=== PATIENT | female | born 1965 | race Caucasian/White ===

== ENCOUNTER 2019-01-15 20:35 | Inpatient (IN) | payer MEDICAID, OTHER ==
[~2019-01-15] VITALS: Ht 185.4 cm; Wt 162.8 kg
[2019-01-15] MEDS ORDERED: FERR325T24 PO (21:19)
[2019-01-15] MEDS ORDERED: CHOL500062 PO (21:19)
[2019-01-15] MEDS ORDERED: CAPS42.513 TP (21:19)
[2019-01-15] MEDS ORDERED: ATOR80TA PO (21:19)
[2019-01-15] MEDS ORDERED: FURO40TA5 PO (21:19)
[2019-01-15] MEDS ORDERED: ALBU2.5V38 IH (21:19)
[2019-01-15] MEDS ORDERED: ACET325C3 PO (21:19)
[2019-01-15] MEDS ORDERED: DULO30CA2 PO (21:19)
[2019-01-15] MEDS ORDERED: DOCU100C36 PO (21:19)
[2019-01-15] MEDS ORDERED: CLOP75TA15 PO (21:19)
[2019-01-15] MEDS ORDERED: FOLI1TAB16 PO (21:19)
[2019-01-15] MEDS ORDERED: CARI350T27 PO (21:19)
[2019-01-15] MEDS ORDERED: ASPI-605 PO (21:19)
[2019-01-15] MEDS ORDERED: PANT40TA4 PO (21:20)
[2019-01-15] MEDS ORDERED: GABA600T12 PO (21:20)
[2019-01-15] MEDS ORDERED: NITR0.4T48 SL (21:20)
[2019-01-15] MEDS ORDERED: LEVE500T9 PO (21:20)
[2019-01-15] MEDS ORDERED: INSU100I26 SQ (21:20)
[2019-01-15] MEDS ORDERED: NAPR-1009 PO (21:20)
[2019-01-15] MEDS ORDERED: METO50TA16 PO (21:20)
[2019-01-15] MEDS ORDERED: HYDR4TAB57 PO (21:20)
[2019-01-15] MEDS ORDERED: BLOO-140 IN (21:20)
[2019-01-15] MEDS ORDERED: METO-295 PO (21:20)
[2019-01-15] MEDS ORDERED: LISI-603 PO (21:20)
[2019-01-15] MEDS ORDERED: HYDR-3980 PO (21:20)
[2019-01-15] MEDS ORDERED: OMEG1CAP55 PO (21:20)
[2019-01-15] MEDS ORDERED: MEMA5TAB PO (21:20)
[2019-01-15] MEDS ORDERED: GLIM2TAB2 PO (21:20)
[2019-01-15] MEDS ORDERED: METF-442 PO (21:20)
[2019-01-15] MEDS ORDERED: HYDROMORPHONE HCL 2 MG TABLET ONE (21:30)
[2019-01-15] MEDS ORDERED: HYDROMORPHONE HCL 2 MG TABLET PO ONE (21:30)
[2019-01-15] MEDS ORDERED: vancomycin IV (21:39)
[2019-01-15 21:56] LABS: BASOPHILS % (AUTO) 0.5 % (0.0-2.0); EOSINOPHILS # (AUTO) 0.1 K/uL (0.0-0.7); EOSINOPHILS % (AUTO) 2.4 % (0.0-7.0); HEMATOCRIT 32.2 % (31.2-41.9); HEMOGLOBIN 10.9 g/dL (10.9-14.3); LYMPHOCYTES % (AUTO) 33.5 % (20.5-51.5); MEAN CORPUSCULAR HEMOGLOBIN 33.1 uug (24.7-32.8); MEAN CORPUSCULAR HGB CONC 34 g/dL (32.3-35.6); MEAN CORPUSCULAR VOLUME 97.4 fL (75.5-95.3); MONOCYTES # (AUTO) 0.4 K/uL (2.0-10.0); MONOCYTES % (AUTO) 7.6 % (0.0-11.0); NEUTROPHILS # (AUTO) 3.3 K/uL (1.8-8.9); PLATELET COUNT (AUTO) 249 K/uL (179-408); RED BLOOD CELL COUNT(AUTO) 3.31 MIL/uL (3.63-4.92); WHITE BLOOD COUNT (AUTO) 5.9 K/uL (3.8-11.8)
[2019-01-15] MEDS ORDERED: VANCOMYCIN 1000 MG VIAL ONE (21:57)
[2019-01-15] MEDS ORDERED: VANCOMYCIN HCL 500 MG VIAL ONE (21:57)
[2019-01-15 22:03] LABS: *BILIRUBIN,URIN NEGATIVE (NEGATIVE); *BLOOD, URINE NEGATIVE (NEGATIVE); *CLARITY,URINE CLEAR (CLEAR); *COLOR,URINE YELLOW (YELLOW); *KETONES,URINE NEGATIVE (NEGATIVE); *UROBILINOGEN,URINE 0.2 E.U./dl (NORMAL); CREATININE 0.7 mg/dL (0.6-1.3); LEUKOCYTE ESTERASE ,URINE NEGATIVE (NEGATIVE); NITRITE, URINE NEGATIVE (NEGATIVE); PH,URINE 5.5 (5.0-8.0); POTASSIUM 3.5 mmol/L (3.5-5.1); UGLUCOSE NEGATIVE (NEGATIVE)
[2019-01-15] MEDS ORDERED: VANCOMYCIN IV 1,250 MG in IV DEXTROSE 5% 250 ML IV ONE (22:08)
[2019-01-15 22:18] LABS: BILIRUBIN,DIRECT 0.2 mg/dL (0.0-0.2); BILIRUBIN,TOTAL 0.5 mg/dL (0.2-1.0)
[2019-01-15] MEDS ORDERED: DEXTROSE 50% 50 ML DISP.SYRIN IV PRN (23:30)
[2019-01-15] MEDS ORDERED: INSULIN REGULAR, HUMAN 300 UNITS/3 ML VIAL SQ PRN (23:30)
[2019-01-15] MEDS: BLOOD SUGAR DIAGNOSTIC 1 EACH STRIP VI SCH (23:53)
[2019-01-15] MEDS: HYDROMORPHONE 1 MG/1 ML DISP.SYRIN IV PRN (23:55)
[2019-01-16] VITALS: BP 135/93
[2019-01-16] MEDS: HYDROMORPHONE 1 MG/1 ML DISP.SYRIN IV PRN ×6 (03:14→20:48)
[2019-01-16] MEDS: BLOOD SUGAR DIAGNOSTIC 1 EACH STRIP VI SCH ×4 (06:32→21:06)
[2019-01-16 08:00] VITALS: BP 140/54
[2019-01-16] MEDS: INSULIN REGULAR, HUMAN 300 UNIT/3 ML VIAL SQ PRN ×4 (08:02→21:18)
[2019-01-16] MEDS ORDERED: ALBUTEROL SULFATE 2.5 MG/3 ML NEBU IH PRN (09:00)
[2019-01-16] MEDS ORDERED: HYDROMORPHONE HCL 2 MG TABLET PO PRN (09:00)
[2019-01-16] MEDS ORDERED: BLOOD SUGAR DIAGNOSTIC 1 EACH STRIP VI SCH (09:00)
[2019-01-16] MEDS ORDERED: NAPROXEN 500 MG TABLET PO PRN (09:00)
[2019-01-16] MEDS ORDERED: ACETAMINOPHEN 325 MG TABLET PO PRN (09:00)
[2019-01-16] MEDS ORDERED: METOCLOPRAMIDE HCL 10 MG TABLET PO PRN (09:00)
[2019-01-16] MEDS ORDERED: NITROGLYCERIN 0.4 MG/TAB BOTTLE SL PRN (09:00)
[2019-01-16] MEDS ORDERED: HYDROCODONE/APAP 10-325 MG TABLET PO PRN (09:00)
[2019-01-16] MEDS ORDERED: CAPSAICIN CREAM XX PRN (09:15)
[2019-01-16] MEDS: CHOLECALCIFEROL 1,000 UNIT TABLET PO SCH (09:57)
[2019-01-16] MEDS: MEMANTINE HCL 5 MG TABLET PO SCH ×2 (09:58→17:06)
[2019-01-16] MEDS: FUROSEMIDE 40 MG TABLET PO SCH ×2 (09:58→17:06)
[2019-01-16] MEDS: GABAPENTIN 300 MG CAPSULE PO SCH ×3 (09:58→17:06)
[2019-01-16] MEDS: FOLIC ACID 1 MG TABLET PO SCH (09:58)
[2019-01-16] MEDS: CARISOPRODOL 350 MG TABLET PO SCH ×3 (09:58→17:06)
[2019-01-16] MEDS: FERROUS SULFATE 325 MG TABEC PO SCH (09:58)
[2019-01-16] MEDS: LISINOPRIL 20 MG TABLET PO SCH (09:59)
[2019-01-16] MEDS: ASPIRIN EC 81 MG TABLET.DR PO SCH (09:59)
[2019-01-16] MEDS: CLOPIDOGREL 75 MG TABLET PO SCH (09:59)
[2019-01-16] MEDS: DULOXETINE 30 MG CAPSULE.DR PO SCH (10:14)
[2019-01-16] MEDS: DOCUSATE SODIUM 100 MG CAPSULE PO SCH ×2 (10:14→17:06)
[2019-01-16] MEDS: PANTOPRAZOLE SODIUM 40 MG TABLET.DR PO SCH (10:14)
[2019-01-16] MEDS: METOPROLOL TARTRATE 50 MG TABLET PO SCH ×2 (10:15→20:48)
[2019-01-16] MEDS: METFORMIN HCL 500 MG TABLET PO SCH ×2 (10:15→17:06)
[2019-01-16 12:00] VITALS: BP 120/56
[2019-01-16] MEDS: OMEGA-3 FATTY ACIDS/FISH OIL CAPSULE PO SCH ×2 (12:07→17:06)
[2019-01-16] MEDS: LEVETIRACETAM 500 MG TABLET PO SCH (12:08)
[2019-01-16] MEDS: VANCOMYCIN IV 2,000 MG in IV NORMAL SALINE 500 ML IV SCH ×2 (13:33→20:47)
[2019-01-16 16:00] VITALS: BP 150/72
[2019-01-16 19:57] VITALS: BP 156/88
[2019-01-16] MEDS: ATORVASTATIN 40 MG TABLET PO SCH (20:47)
[2019-01-16] MEDS ORDERED: INSULIN GLARGINE,HUM 300 UNITS/3 ML CARTRIDGE SQ ONE (21:52)
[2019-01-16] MEDS: INSULIN GLARGINE,HUM 300 UNITS/3 ML CARTRIDGE SQ SCH (22:30)
[2019-01-17 00:37] VITALS: BP 150/90
[2019-01-17] MEDS: HYDROMORPHONE 1 MG/1 ML DISP.SYRIN IV PRN ×8 (00:38→23:38)
[2019-01-17 04:00] VITALS: BP 141/90
[2019-01-17] MEDS: VANCOMYCIN IV 2,000 MG in IV NORMAL SALINE 500 ML IV SCH (04:32)
[2019-01-17] MEDS: PANTOPRAZOLE SODIUM 40 MG TABLET.DR PO SCH (06:07)
[2019-01-17] MEDS: BLOOD SUGAR DIAGNOSTIC 1 EACH STRIP VI SCH ×4 (06:43→20:21)
[2019-01-17] MEDS: DOCUSATE SODIUM 100 MG CAPSULE PO SCH ×2 (08:05→17:08)
[2019-01-17] MEDS: ASPIRIN EC 81 MG TABLET.DR PO SCH (08:05)
[2019-01-17] MEDS: GABAPENTIN 300 MG CAPSULE PO SCH ×3 (08:08→17:08)
[2019-01-17] MEDS: GLIMEPIRIDE 2 MG TABLET PO SCH ×2 (08:12→17:27)
[2019-01-17] MEDS: MEMANTINE HCL 5 MG TABLET PO SCH ×2 (08:12→17:09)
[2019-01-17] MEDS: CLOPIDOGREL 75 MG TABLET PO SCH (08:12)
[2019-01-17] MEDS: DULOXETINE 30 MG CAPSULE.DR PO SCH (08:12)
[2019-01-17] MEDS: METFORMIN HCL 500 MG TABLET PO SCH ×2 (08:12→17:27)
[2019-01-17] MEDS: OMEGA-3 FATTY ACIDS/FISH OIL CAPSULE PO SCH ×2 (08:13→17:09)
[2019-01-17] MEDS: CHOLECALCIFEROL 1,000 UNIT TABLET PO SCH (08:13)
[2019-01-17] MEDS: CARISOPRODOL 350 MG TABLET PO SCH ×3 (08:13→17:10)
[2019-01-17] MEDS: LEVETIRACETAM 500 MG TABLET PO SCH (08:13)
[2019-01-17] MEDS: FOLIC ACID 1 MG TABLET PO SCH (08:13)
[2019-01-17] MEDS: FERROUS SULFATE 325 MG TABEC PO SCH (08:14)
[2019-01-17] MEDS: FUROSEMIDE 40 MG TABLET PO SCH ×2 (08:14→17:07)
[2019-01-17] MEDS: LISINOPRIL 20 MG TABLET PO SCH (08:21)
[2019-01-17] MEDS: METOPROLOL TARTRATE 50 MG TABLET PO SCH ×2 (08:21→20:22)
[2019-01-17] MEDS: INSULIN REGULAR, HUMAN 300 UNIT/3 ML VIAL SQ PRN ×3 (08:24→20:30)
[2019-01-17 10:31] VITALS: BP 101/75
[2019-01-17 14:54] VITALS: BP 128/66
[2019-01-17 20:00] VITALS: BP 136/69
[2019-01-17] MEDS: ATORVASTATIN 40 MG TABLET PO SCH (20:21)
[2019-01-17] MEDS: VANCOMYCIN IV 2,000 MG in IV DEXTROSE 5% 500 ML IV SCH (20:23)
[2019-01-17] MEDS: INSULIN GLARGINE,HUM 300 UNITS/3 ML CARTRIDGE SQ SCH (20:26)
[2019-01-18] MEDS: HYDROMORPHONE 1 MG/1 ML DISP.SYRIN IV PRN ×7 (02:39→22:32)
[2019-01-18 04:00] VITALS: BP 120/62
[2019-01-18] MEDS: PANTOPRAZOLE SODIUM 40 MG TABLET.DR PO SCH (06:18)
[2019-01-18] MEDS: BLOOD SUGAR DIAGNOSTIC 1 EACH STRIP VI SCH ×4 (06:25→21:40)
[2019-01-18] MEDS: VANCOMYCIN IV 2,000 MG in IV DEXTROSE 5% 500 ML IV SCH ×2 (08:18→19:02)
[2019-01-18] MEDS: OMEGA-3 FATTY ACIDS/FISH OIL CAPSULE PO SCH ×2 (08:21→17:14)
[2019-01-18] MEDS: FERROUS SULFATE 325 MG TABEC PO SCH (08:28)
[2019-01-18] MEDS: DOCUSATE SODIUM 100 MG CAPSULE PO SCH ×2 (08:29→17:17)
[2019-01-18] MEDS: ASPIRIN EC 81 MG TABLET.DR PO SCH (08:29)
[2019-01-18] MEDS: CLOPIDOGREL 75 MG TABLET PO SCH (08:30)
[2019-01-18] MEDS: GLIMEPIRIDE 2 MG TABLET PO SCH ×2 (08:30→17:17)
[2019-01-18] MEDS: GABAPENTIN 300 MG CAPSULE PO SCH ×3 (08:30→17:14)
[2019-01-18] MEDS: DULOXETINE 30 MG CAPSULE.DR PO SCH (08:30)
[2019-01-18] MEDS: MEMANTINE HCL 5 MG TABLET PO SCH ×2 (08:31→17:17)
[2019-01-18] MEDS: METOPROLOL TARTRATE 50 MG TABLET PO SCH ×2 (08:31→21:33)
[2019-01-18] MEDS: FOLIC ACID 1 MG TABLET PO SCH (08:31)
[2019-01-18] MEDS: FUROSEMIDE 40 MG TABLET PO SCH ×2 (08:32→17:16)
[2019-01-18] MEDS: LISINOPRIL 20 MG TABLET PO SCH (08:32)
[2019-01-18] MEDS: LEVETIRACETAM 500 MG TABLET PO SCH (08:32)
[2019-01-18] MEDS: CARISOPRODOL 350 MG TABLET PO SCH ×3 (08:33→17:14)
[2019-01-18] MEDS: METFORMIN HCL 500 MG TABLET PO SCH ×2 (08:33→17:14)
[2019-01-18] MEDS: CHOLECALCIFEROL 1,000 UNIT TABLET PO SCH (08:34)
[2019-01-18] MEDS: INSULIN REGULAR, HUMAN 300 UNIT/3 ML VIAL SQ PRN ×4 (08:36→21:48)
[2019-01-18 10:00] VITALS: BP 132/58
[2019-01-18 12:00] VITALS: BP 136/78
[2019-01-18 18:30] VITALS: BP 135/68
[2019-01-18 21:33] VITALS: BP 126/65
[2019-01-18] MEDS: ATORVASTATIN 40 MG TABLET PO SCH (21:33)
[2019-01-18] MEDS: INSULIN GLARGINE,HUM 300 UNITS/3 ML CARTRIDGE SQ SCH (21:45)
== END 2019-01-18 22:45 | DRG 603 ==
LOC: ER 20:35 → EDBD 20:35 → TELE3 22:27 → MEDSURG3 01-16 14:57 → TELE3 01-16 15:00 → MEDSURG3 01-17 14:00
PROVIDERS: ADMIT Internal Medicine; ATTEND Internal Medicine
DX: L03.115 Cellulitis of right lower limb (principal); Z68.42 Body mass index [BMI] 45.0-49.9, adult; E66.01 Morbid (severe) obesity due to excess calories; E78.5 Hyperlipidemia, unspecified; L02.415 Cutaneous abscess of right lower limb; B95.62 Methicillin resistant Staphylococcus aureus infection as the cause of diseases classified elsewhere; Z99.81 Dependence on supplemental oxygen; J44.9 Chronic obstructive pulmonary disease, unspecified; I25.10 Atherosclerotic heart disease of native coronary artery without angina pectoris; Z95.1 Presence of aortocoronary bypass graft; Z79.02 Long term (current) use of antithrombotics/antiplatelets; Z79.899 Other long term (current) drug therapy; K21.9 Gastro-esophageal reflux disease without esophagitis; Z71.3 Dietary counseling and surveillance; L03.116 Cellulitis of left lower limb; R60.0 Localized edema; G89.29 Other chronic pain; S80.811A Abrasion, right lower leg, initial encounter; X58.XXXA Exposure to other specified factors, initial encounter; Y92.89 Other specified places as the place of occurrence of the external cause; I11.0 Hypertensive heart disease with heart failure; I50.9 Heart failure, unspecified; E11.9 Type 2 diabetes mellitus without complications
CPT/HCPCS: 36415; 70030-TC; 76881; 85025; 87070; 87077; 87086; A4663; G0378; J1170; J1815; J3370; J7040; J7060

== ENCOUNTER 2019-06-03 17:05 | Emergency (ER) | payer OTHER ==
[~2019-06-03] VITALS: Ht 185.4 cm; Wt 158.3 kg
[~2019-06-03 17:05] MED LIST: ACET325C3 PO; ALBU2.5V38 IH; ASPI-605 PO; ATOR80TA PO; BLOO-140 IN; CAPS42.513 TP; CARI350T27 PO; CHOL500062 PO; CLOP75TA15 PO; DOCU100C36 PO; DULO30CA2 PO; FERR325T24 PO; FOLI1TAB16 PO; FURO40TA5 PO; GABA600T12 PO; GLIM2TAB31 PO; HYDR-3980 PO; HYDR4TAB57 PO; INSU100I26 SQ; LEVE500T9 PO; LISI-603 PO; MEMA5TAB PO; METF-442 PO; METO-295 PO; METO50TA16 PO; NITR0.4T48 SL; OMEG1CAP55 PO; PANT40TA4 PO; vancomycin IV
[2019-06-03] MEDS ORDERED: NITROGLYCERIN OINT 1 GM PACKET TP ONE ×2 (17:15→17:18)
[2019-06-03] MEDS ORDERED: ASPIRIN 81 MG TAB.CHEW PO ONE (17:15)
--- NOTE | 2019-06-03 17:15 | NUR ---
Dr Turpin at the bedside for MSE.
[2019-06-03] MEDS ORDERED: ASPIRIN 81 MG TAB.CHEW ONE (17:18)
[2019-06-03 17:26] LABS: BASOPHILS # (AUTO) 0.1 K/uL (0.0-8.0); BASOPHILS % (AUTO) 0.8 % (0.0-2.0); EOSINOPHILS # (AUTO) 0.1 K/uL (0.0-0.7); EOSINOPHILS % (AUTO) 1.7 % (0.0-7.0); HEMATOCRIT 38.3 % (31.2-41.9); HEMOGLOBIN 12.9 g/dL (10.9-14.3); LYMPHOCYTES % (AUTO) 36.3 % (20.5-51.5); MEAN CORPUSCULAR HEMOGLOBIN 33.3 uug (24.7-32.8); MEAN CORPUSCULAR HGB CONC 34 g/dL (32.3-35.6); MEAN CORPUSCULAR VOLUME 99.1 fL (75.5-95.3); MONOCYTES # (AUTO) 0.5 K/uL (2.0-10.0); MONOCYTES % (AUTO) 6.7 % (0.0-11.0); NEUTROPHILS # (AUTO) 4.5 K/uL (1.8-8.9); NEUTROPHILS % (AUTO) 54.5 % (38.5-71.5); PLATELET COUNT (AUTO) 285 K/uL (179-408); RED BLOOD CELL COUNT(AUTO) 3.86 MIL/uL (3.63-4.92); WHITE BLOOD COUNT (AUTO) 8.1 K/uL (3.8-11.8)
[2019-06-03 17:33] LABS: POTASSIUM 4.1 mmol/L (3.5-5.1)
[2019-06-03] MEDS ORDERED: ONDANSETRON 4 MG/2 ML VIAL ONE (17:37)
[2019-06-03] MEDS ORDERED: HYDROMORPHONE 1 MG/1 ML DISP.SYRIN ONE (17:37)
[2019-06-03] MEDS ORDERED: HYDR-4354 PO (17:42)
[2019-06-03] MEDS ORDERED: ALBU2.5V13 NEB (17:42)
[2019-06-03] MEDS ORDERED: MAG30ORA PO (17:42)
[2019-06-03] MEDS ORDERED: ONDANSETRON 4 MG/2 ML VIAL IV ONE (17:45)
[2019-06-03] MEDS ORDERED: HYDROMORPHONE 1 MG/1 ML DISP.SYRIN IV ONE (17:45)
[2019-06-03 17:46] LABS: BILIRUBIN,DIRECT 0.1 mg/dL (0.0-0.2); BILIRUBIN,TOTAL 0.3 mg/dL (0.2-1.0); TOTAL PROTEIN, SERUM 7.1 g/dL (6.4-8.2)
--- NOTE | 2019-06-03 17:54 | NUR ---
Patient is resting comfortably in bed with eyes closed, NAD noted.
[2019-06-03] MEDS ORDERED: INSU100I14 SQ (17:55)
[2019-06-03] MEDS ORDERED: CHOL100053 PO (17:58)
--- NOTE | 2019-06-03 18:11 | NUR ---
Pt insurance is caped to [employer] awaiting call back from their MD.
--- NOTE | 2019-06-03 18:34 | NUR ---
Dr Turpin spoke to Dr Awad from [facility].
[2019-06-03] MEDS ORDERED: ACETAMINOPHEN ES 500 MG TABLET PO ONE (20:00)
[2019-06-03] MEDS ORDERED: ACETAMINOPHEN ES 500 MG TABLET ONE (20:10)
--- NOTE | 2019-06-03 20:47 | NUR ---
Spoke with Shelbie from [facility] for tranport request. per Shelbie, will call back for trip details
--- NOTE | 2019-06-03 21:23 | NUR ---
Shelbie from [facility] called back with eta of 30-45 mins. Trip #[id number]
--- NOTE | 2019-06-03 21:44 | NUR ---
Patient discharged to home in stable conditon. Written and verbal after care instructions given. Patient verbalizes understanding of instructions. Patient taken by [id number] via gurney in stable condition. all belongings with patient.
[2019-06-03 22:05] VITALS: BP 95/63
== END 2019-06-03 21:44 | disposition home or self-care (01) ==
LOC: ER 17:05
DX: R07.89 Other chest pain (principal); I25.2 Old myocardial infarction; J44.9 Chronic obstructive pulmonary disease, unspecified; K21.9 Gastro-esophageal reflux disease without esophagitis; E11.9 Type 2 diabetes mellitus without complications; Z95.1 Presence of aortocoronary bypass graft; Z88.0 Allergy status to penicillin; Z88.8 Allergy status to other drugs, medicaments and biological substances; Z91.013 Allergy to seafood; Z79.4 Long term (current) use of insulin; Z79.82 Long term (current) use of aspirin; Z79.2 Long term (current) use of antibiotics; Z79.899 Other long term (current) drug therapy
CPT/HCPCS: 36415; 71045; 80048; 80076; 83880; 84484 ×2; 85025; 85730; 93005 ×2; 96374; 96375; 99284; J1170; J2405; 70030-TC; A4663; A9150